=== PATIENT | female | born 1980 | race Caucasian/White ===

== ENCOUNTER 2020-12-23 20:07 | Emergency (ER) | payer BC ==
[~2020-12-23] VITALS: Ht 167.6 cm; Wt 76.3 kg
[2020-12-23] MEDS ORDERED: HYDROcodone/APAP 5/325MG 1 TAB TABLET PO ONE (20:30)
--- NOTE | 2020-12-23 20:30 | PHYS DOC ---
Past History Additional Past Medical Histor: MS, orthostatic hypotension, transplant patient (TOMI ENGEL APRN) Past Surgical History: Other Additional Past Surgical Histo: pancrease transplant, kidney transplant (TOMI ENGEL APRN) Alcohol Use: None (TOMI ENGEL APRN) General Adult EDM: Chief Complaint: SYNCOPE HPI: HPI: Patient is a 40-year-old female who presents to the emergency department for syncopal episode that occurred at 1330 today. Patient reports that she has a history of orthostatic hypotension and syncope. Patient reports that she was on the stairs when she had the syncopal episode and fell onto her left side. She denies hitting her head. She is reporting bilateral temporal headache, left- sided neck pain and left rib pain. She is also reporting mild dizziness, nause a. She reports that she normally has blurred vision. Patient denies chest pain or shortness of breath. Patient has a history of pancreatic and kidney transplant along with MS. Patient is requesting pain medication during triage. (TOMI ENGEL APRN) Review of Systems: Review of Systems: 14 body systems of the review of systems have been reviewed. See HPI for pertinent positive and negative responses, otherwise all other systems are negative, nonpertinent or noncontributory (TOMI NEGEL APRN) Current Medications: Current Meds: Current Medications Medications (Trade) Dose Ordered Sig/Jonathon Start Time Stop Time Status Last Admin Dose Admin Acetaminophen/ Hydrocodone Bitart (Lortab 5/325) 1 tab 1X ONCE 12/23/20 20:30 12/23/20 20:31 (TOMI ENGEL APRN) Allergies: Allergies: Allergies Coded Allergies Type Severity Reaction Last Updated Verified No Known Drug Allergies 12/23/20 No (TOMI ENGEL APRN) Physical Exam: PE: Constitutional: Well developed, well nourished, no acute distress, non-toxic appearance. [] HENT: Normocephalic, atraumatic, bilateral external ears normal, oropharynx moist, no oral exudates, nose normal. [] Eyes: PERRLA, pupils are 4 mm bilaterally EOMI, conjunctiva normal, no discharge. [] Neck: Normal range of motion, no bony spinal tenderness, left-sided cervical paraspinal tenderness with palpation, supple, no stridor. [] Cardiovascular:Heart rate regular rhythm, no murmur [] Lungs & Thorax: Bilateral breath sounds clear to auscultation, left posterior rib pain with palpation, no crepitus, no flail chest, no obvious deformity, no wounds or ecchymosis [] Abdomen: Bowel sounds normal, soft, no tenderness, no masses, no pulsatile masses. [] Skin: Warm, dry, no erythema, no rash. [] Back: No bony spinal tenderness, normal range of motion Extremities: No tenderness, no cyanosis, no clubbing, ROM intact, no edema. [] Neurologic: Alert and oriented X 3, normal motor function, normal sensory function, no focal deficits noted. [] Psychologic: Affect normal, judgement normal, mood normal. [] (TOMI ENGEL APRN) Current Patient Data: Vital Signs: Vital Signs Date Time Temp Pulse Resp B/P (MAP) Pulse Ox O2 Delivery O2 Flow Rate FiO2 12/23/20 20:18 98.2 87 18 149/71 (97) 99 Room Air (TOMI ENGEL [employer]IST) EKG: EKG: [] EKG performed by ER staff at 2020 shows sinus rhythm with a rate of 82, QTc of 431, no STEMI read by Dr. Phan at 2028 (TOMI ENGEL [employer]IST) Radiology/Procedures: Radiology/Procedures: []PROCEDURE: CT HEAD AND CERVICAL SPINE WO CT HEAD AND C-SPINE WO Date: 12/23/2020 8:32 PM Clinical Indication: fall, light headed, passed out possibly, head pressure, pain Comparison: None. Technique: 5 mm axial tomographic images were obtained of the head without contrast. These were viewed on brain and bone windows. CT imaging of the cervical spine was performed without contrast. Coronal and sagittal reformatted images were performed. One or more of the following dose reduction techniques were utilized: Automated exposure control (AEC), Adjustment of mA and/or kV according to patient size, Use of iterative reconstruction technique such as ASiR, CT scan done according to ALARA and image gently/image wisely HEAD FINDINGS: The brain parenchyma is normal in attenuation. No intra- or extra-axial mass or fluid collection. No acute hemorrhage. The ventricles are normal in size, shape, and morphology. The ibanez-white matter junction is normal. The basilar cisterns are patent. The visualized paranasal sinuses are normal. The visualized portions of the orbits and globes are normal. The mastoid air cells are clear. No aggressive osseous lesion or fracture. CERVICAL SPINE FINDINGS: The cervical spine is normally aligned. No acute fracture. No aggressive lytic or blastic osseous lesion. The intervertebral disc heights are maintained. No high-grade spinal canal stenosis or neural foraminal narrowing. The thyroid gland is normal. No cervical lymphadenopathy. The visualized aerodigestive tract is unremarkable. The visualized lung apices are clear. IMPRESSION: 1. No acute intracranial process. 2. No acute osseous abnormality of the cervical spine. Electronically signed by: Phuc Patel MD (12/23/2020 9:27 PM) [facility] DICTATED AND SIGNED BY: PHUC PATEL MD DATE: 12/23/202125 CC: TOMI ENGEL APRN ~MTH0 0 (TOMI ENGEL APRN) Radiology/Procedures: [address] [id number] IMAGING REPORT Signed PATIENT: STACI BARTHOLOMEW ACCOUNT: [id number] : 1980 LOCATION: ER AGE: 40 SEX: F EXAM STATUS: PRE ER ORD. PHYSICIAN: TOMI ENGEL APRN REASON: fall, abdomen pain, left sided chest pain PROCEDURE: CT CHEST ABDOMEN PELVIS WO EXAM: CT CHEST, ABDOMEN, AND PELVIS WITHOUT CONTRAST INDICATION: Fall, left-sided chest pain COMPARISON: None TECHNIQUE: Helical CT imaging performed of the chest, abdomen and pelvis without contrast. Sagittal and coronal reformats were obtained. One or more of the following individualized dose reduction techniques were utilized for this examination: 1. Automated exposure control 2. Adjustment of the mA and/or kV according to patient size 3. Use of iterative reconstruction technique. FINDINGS: CHEST: Thyroid gland and thoracic inlet: Normal. Heart and great vessels: Heart is normal in size. No pericardial effusion. Thoracic aorta is normal in caliber. Mediastinum and melissa: No mediastinal or hilar lymphadenopathy. Lungs and pleura: There are subtle groundglass opacities in the posterior medial left lower lobe. No pleural effusion or pneumothorax. No pleural effusion or pneumothorax. Chest wall and axillae: Chest wall is unremarkable. No axillary lymphadenopathy. Bones: No acute osseous abnormality Chest ABDOMEN AND PELVIS: Liver: Unremarkable noncontrast appearance the liver. Gallbladder/Biliary Tree: Normal Pancreas: Normal. Spleen: Normal. Adrenal Glands: Normal. Kidneys/Ureters/Bladder: The [place] kidneys are slightly small. There is right nephrolithiasis with small calculi measuring up to 4 mm. There is a 1 cm simple cyst in the right kidney. No hydronephrosis. There is a transplant kidney in the left iliac fossa. Ureters are normal. Bladder is incompletely distended. Reproductive Organs: Unremarkable. Stomach, small bowel, and colon: Stomach is mildly distended. There is no small bowel obstruction. There are surgical changes of the small bowel with an anastomosis in the lower midabdomen. Bowel is suboptimal evaluated due to lack of IV and oral contrast. There is a redundant sigmoid colon. Vasculature: No aortic aneurysm. Mild calcified aortoiliac atherosclerosis. Lymph Nodes: No lymphadenopathy. Peritoneum and retroperitoneum: No free fluid or free air. Bones: No acute osseous abnormality. IMPRESSION: 1. Small area of subtle groundglass opacities in the posterior medial left lower lobe, nonspecific. This could be related to atelectasis or infection. In the setting of trauma, small pulmonary contusion is not excluded. 2. No other evidence of traumatic injury of the chest, abdomen, and pelvis. 3. Surgical changes of the small bowel. 4. Transplant kidney in the left iliac fossa. (MEHUL PHAN MD) Heart Score: C/O Chest Pain: No Risk Factors: Risk Factors: DM, Current or recent (<one month) smoker, HTN, HLP, family history of CAD, obesity. Risk Scores: Score 0 - 3: 2.5% MACE over next 6 weeks - Discharge Home Score 4 - 6: 20.3% MACE over next 6 weeks - Admit for Clinical Observation Score 7 - 10: 72.7% MACE over next 6 weeks - Early Invasive Strategies (TOMI ENGEL APRN) Course & Med Decision Making: Course & Med Decision Making Pertinent Labs and Imaging studies reviewed. (See chart for details) [] Patient presents to the emergency department for syncopal episode. She is complaining of a temporal headache, left-sided cervical paraspinal tenderness, left posterior rib pain. Imaging was performed of patient's head and neck, left rib. Patient treated in the ER for her pain. Blood work, urinalysis, EKG performed. CT scan of patient's head and neck were negative for any acute findings. Patient's blood work in the ER was unremarkable. Slight elevation in BUN and creatinine likely due to patient's kidney transplant. No previous findings to compare to. ct chest/abd performed to r/o fracture/pneumo. This is pending at this time. I discussed patients case and findings with Dr. Phan and he will assume patient care at this time, care transferred [id number]. (TOMI ENGEL APRN) Dragon Disclaimer: Dragon Disclaimer: This electronic medical record was generated, in whole or in part, using a voice recognition dictation system. (TOMI ENGEL APRN) Departure Departure: Impression: Primary Impression: Syncope Qualified Codes: R55 - Syncope and collapse Attending Signature Attending Signature I have participated in the care of this patient and I have reviewed and agree with all pertinent clinical information above including history, exam, and recommendations. (MEHUL PHAN MD) TOMI ENGEL APRN Dec 23, 2020 20:30 MEHUL PHAN MD Dec 23, 2020 23:48
[2020-12-23 20:54] LABS: BASO # 0.1 x10^3/uL (0.0-0.2); BASO % 1 % (0-3); EOS % 1 % (0-3); HEMATOCRIT 36.5 % (36.0-47.0); HEMOGLOBIN 11.7 g/dL (12.0-15.5); LYMPH # 1.9 x10^3/uL (1.0-4.8); LYMPH % 38 % (24-48); MEAN CORPUSCULAR HEMOGLOBIN 28 pg (25-35); MEAN CORPUSCULAR HGB CONC 32 g/dL (31-37); MEAN CORPUSCULAR VOLUME 87 fL (79-100); MONO # 0.5 x10^3/uL (0.0-1.1); MONO % 9 % (0-9); NEUT # 2.5 x10^3uL (1.8-7.7); NEUT % 50 % (31-73); PLATELET COUNT 201 x10^3/uL (140-400); RED BLOOD COUNT 4.21 x10^6/uL (3.50-5.40); RED CELL DISTRIBUTION WIDTH 13.5 % (11.5-14.5)
[2020-12-23 20:59] LABS: CREATININE 1.5 mg/dL (0.6-1.0); GFR 38.5; POTASSIUM 4.5 mmol/L (3.5-5.1)
[2020-12-23 21:05] LABS: TOTAL BILIRUBIN 0.6 mg/dL (0.2-1.0); TOTAL PROTEIN 7.9 g/dL (6.4-8.2)
[2020-12-23] MEDS ORDERED: CYCLOBENZAPRINE 10 MG TABLET. PO ONE (21:30)
--- NOTE | 2020-12-23 21:30 | RAD ---
CT HEAD AND C-SPINE WO Date: 12/23/2020 8:32 PM Clinical Indication: fall, light headed, passed out possibly, head pressure, pain Comparison: None. Technique: 5 mm axial tomographic images were obtained of the head without contrast. These were view ed on brain and bone windows. CT imaging of the cervical spine was performed without contrast. Coron al and sagittal reformatted images were performed. One or more of the following dose reduction techni ques were utilized: Automated exposure control (AEC), Adjustment of mA and/or kV according to patient size, Use of iterative reconstruction technique such as ASiR, CT scan done according to ALARA and im age gently/image wisely HEAD FINDINGS: The brain parenchyma is normal in attenuation. No intra- or extra-axial mass or fluid collection. No acute hemorrhage. The ventricles are normal in size, shape, and morphology. The ibanez-white matter meir ction is normal. The basilar cisterns are patent. The visualized paranasal sinuses are normal. The visualized portions of the orbits and globes are no rmal. The mastoid air cells are clear. No aggressive osseous lesion or fracture. CERVICAL SPINE FINDINGS: The cervical spine is normally aligned. No acute fracture. No aggressive lytic or blastic osseous les ion. The intervertebral disc heights are maintained. No high-grade spinal canal stenosis or neural foramin al narrowing. The thyroid gland is normal. No cervical lymphadenopathy. The visualized aerodigestive tract is unrem arkable. The visualized lung apices are clear. IMPRESSION: 1. No acute intracranial process. 2. No acute osseous abnormality of the cervical spine. Electronically signed by: Lenny Patel MD (12/23/2020 9:27 PM) [facility]
[2020-12-23 22:05] LABS: BARBITURATES NEG (NEG); BENZODIAZEPINES POS (NEG); CANNABINOIDS NEG (NEG); COCAINE NEG (NEG); METHADONE NEG (NEG); OPIATES NEG (NEG); PHENCYCLIDINE NEG (NEG)
[2020-12-23 22:06] LABS: AMPHETAMINE/METHAMPHETAMINE NEG (NEG)
--- NOTE | 2020-12-23 22:12 | RAD ---
XR RIBS 2 VIEWS LT DATE: 12/23/2020 8:32 PM INDICATION: fall, left rib pain COMPARISON: None available. FINDINGS: Chest: Heart size is within normal limits. No focal consolidations are seen. No evidence for pulmona ry edema, pleural effusion, or pneumothorax. Bones: No radiographic evidence for a displaced, left-sided rib fracture is seen. IMPRESSION: No radiographic evidence for left-sided rib fracture. Electronically signed by: Lenny Patel MD (12/23/2020 10:09 PM) [facility]
[2020-12-23 22:13] LABS: BILIRUBIN,URINE SMALL (NEG); CLARITY,URINE CLOUDY; COLOR,URINE YELLOW; GLUCOSE,URINE NEG (NEG)
[2020-12-23 22:14] LABS: BACTERIA,URINE MOD /HPF (0-FEW); NITRITE,URINE NEG (NEG); SQUAMOUS EPITHELIAL CELL,UR MANY /LPF; UROBILINOGEN,URINE 0.2 mg/dL (0.2 mg/dL)
--- NOTE | 2020-12-23 22:57 | EKG ---
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
--- NOTE | 2020-12-23 23:16 | RAD ---
EXAM: CT CHEST, ABDOMEN, AND PELVIS WITHOUT CONTRAST INDICATION: Fall, left-sided chest pain COMPARISON: None TECHNIQUE: Helical CT imaging performed of the chest, abdomen and pelvis without contrast. Sagittal a nd coronal reformats were obtained. One or more of the following individualized dose reduction techniques were utilized for this examinat ion: 1. Automated exposure control 2. Adjustment of the mA and/or kV according to patient size 3. Use of iterative reconstruction technique. FINDINGS: CHEST: Thyroid gland and thoracic inlet: Normal. Heart and great vessels: Heart is normal in size. No pericardial effusion. Thoracic aorta is normal i n caliber. Mediastinum and melissa: No mediastinal or hilar lymphadenopathy. Lungs and pleura: There are subtle groundglass opacities in the posterior medial left lower lobe. No pleural effusion or pneumothorax. No pleural effusion or pneumothorax. Chest wall and axillae: Chest wall is unremarkable. No axillary lymphadenopathy. Bones: No acute osseous abnormality Chest ABDOMEN AND PELVIS: Liver: Unremarkable noncontrast appearance the liver. Gallbladder/Biliary Tree: Normal Pancreas: Normal. Spleen: Normal. Adrenal Glands: Normal. Kidneys/Ureters/Bladder: The [place] kidneys are slightly small. There is right nephrolithiasis with s mall calculi measuring up to 4 mm. There is a 1 cm simple cyst in the right kidney. No hydronephrosis . There is a transplant kidney in the left iliac fossa. Ureters are normal. Bladder is incompletely d istended. Reproductive Organs: Unremarkable. Stomach, small bowel, and colon: Stomach is mildly distended. There is no small bowel obstruction. Th ere are surgical changes of the small bowel with an anastomosis in the lower midabdomen. Bowel is sub optimal evaluated due to lack of IV and oral contrast. There is a redundant sigmoid colon. Vasculature: No aortic aneurysm. Mild calcified aortoiliac atherosclerosis. Lymph Nodes: No lymphadenopathy. Peritoneum and retroperitoneum: No free fluid or free air. Bones: No acute osseous abnormality. IMPRESSION: 1. Small area of subtle groundglass opacities in the posterior medial left lower lobe, nonspecific. This could be related to atelectasis or infection. In the setting of trauma, small pulmonary contusio n is not excluded. 2. No other evidence of traumatic injury of the chest, abdomen, and pelvis. 3. Surgical changes of the small bowel. 4. Transplant kidney in the left iliac fossa. Electronically signed by: Lexi Stafford MD (12/23/2020 11:14 PM) [facility]
[2020-12-23 23:50] VITALS: BP 114/80
== END 2020-12-24 00:24 | disposition home or self-care (01) ==
LOC: ER 20:07
DX: R55 Syncope and collapse (principal); M54.2 Cervicalgia; R51.9 Headache, unspecified; R07.81 Pleurodynia; G35 Multiple sclerosis; Z94.0 Kidney transplant status
CPT/HCPCS: 36415; 70450; 71100; 71250; 72125; 74176; 80053; 80307; 81001; 81025; 84484; 85025; 87086; 93005; 99285-25